=== PATIENT | male | born 1985 | race Caucasian/White ===

== ENCOUNTER 2016-09-12 15:38 | Emergency (ER) | payer MEDICAID ==
[~2016-09-12] VITALS: Ht 177.8 cm; Wt 69.9 kg
[~2016-09-12 15:38] MED LIST: IBUP600 PO; ORPH100T PO
[2016-09-12 16:03] VITALS: BP 106/69; PULSE 80; RESP 16; TEMP 98.2; O2SAT 98
--- NOTE | 2016-09-12 16:07 | PD ---
HPI . dental pain worsening x 1 day Chief Complaint: Oral / Dental Pain or Problem Time Seen by Provider: 16:07 Travel History International Travel<30 days: No Contact w/Intl Traveler<30days: No Traveled to known affect area: No History of Present Illness HPI 31-year-old male with no significant past medical history here for worsening dental pain for 1 day. Patient has had some issues with his teeth for several years. Most recently 2 months ago he was treated with IV and oral antibiotics secondary to his infection. Unfortunately after discharge from the hospital he was unable to follow-up with the dentist. He does have an appointment coming up on the following Tuesday. Today he is here with worsening dental pain for 1 day. He he tells me the pain is 10 out of 10 and radiating into his head ( frontal) and face. He is able to eat, but certain foods cause worsening of the pain. For example today he had a doughnut which she did not tolerate well. Able to drink without any issues. He denies any fever or chills. He denies any chest pain, nausea, vomiting, diaphoresis, abdominal pain or GI complaints. [facility] Past Medical History Diminished Hearing: No Seizures: Yes ( A CHILD LAST SEIZURE IN 1996) Social History Alcohol Use: No Tobacco Use: Yes (07/26 PPD) Substance Use: No Allergies-Medications (Allergen,Severity, Reaction): Coded Allergies: No Known Allergies (Unverified , 09/12/16) Reported Meds & Prescriptions Reported Meds & Active Scripts Active Ibuprofen 800 Mg Tab 800 Mg PO TID Augmentin (Amoxicillin-Clavulanate) 875-125 mg Tab 875 Mg PO BID not for use in CrCl <30 ml/min. Review of Systems General / Constitutional: No: Fever Eyes: No: Visual changes HENT: Positive: Dental Difficulties, No: Headaches Cardiovascular: No: Chest Pain or Discomfort Respiratory: No: Shortness of Breath Gastrointestinal: No: Abdominal Pain Genitourinary: No: Dysuria Musculoskeletal: No: Pain Skin: No Rash Neurologic: No: Weakness Psychiatric: No: Depression Endocrine: No: Polydipsia Hematologic/Lymphatic: No: Easy Bruising Physical Exam Narrative GENERAL: AAO x 3, no acute distress, Well-nourished, well-developed patient. SKIN: Warm and dry. No visible rashes or bruising. HEAD: Normocephalic and atraumatic. EYES: No scleral icterus. No injection or drainage. Pupils equal round reactive to light ENT: No nasal drainage noted. Mucous membranes pink. Airway patent. TMs normal bilaterally. Oral examination shows multiple dental caries. There is gingivitis present, mainly affecting the lower jaw at #19 and 18. There is some submandibular lymphadenopathy. NECK: Supple, trachea midline. No JVD. CARDIOVASCULAR: Regular rate and rhythm without murmurs, gallops, or rubs. RESPIRATORY: Breath sounds equal bilaterally. No accessory muscle use. No rhonchi or rales. GASTROINTESTINAL: Abdomen soft, non-tender, nondistended. EXTREMITIES: No cyanosis or edema. BACK: Nontender without obvious deformity. No CVA tenderness. PSYCH: AAO x 3, normal affect. Data Data Last Documented VS Vital Signs Date Time Temp Pulse Resp B/P Pulse Ox O2 Delivery O2 Flow Rate FiO2 09/12/16 16:03 98.2 80 16 106/69 98 Orders Ketorolac Inj (Toradol Inj) (09/12/16 16:15) [facility] Medical Decision Making Medical Screen Exam Complete: Yes Emergency Medical Condition: Yes Differential Diagnosis Gingivitis, dental caries, oral abscess, less likely facial cellulitis Narrative Course 31-year-old male with no significant past medical history here for worsening dental pain for 1 day. Patient has had some issues with his teeth for several years. Most recently 2 months ago he was treated with IV and oral antibiotics secondary to his infection. Unfortunately after discharge from the hospital he was unable to follow-up with the dentist. He does have an appointment coming up on the following Tuesday. Today he is here with worsening dental pain for 1 day. He he tells me the pain is 10 out of 10 and radiating into his head ( frontal) and face. He is able to eat, but certain foods cause worsening of the pain. For example today he had a doughnut which she did not tolerate well. Able to drink without any issues. He denies any fever or chills. He denies any chest pain, nausea, vomiting, diaphoresis, abdominal pain or GI complaints. Patient seen and examined. afebrile. no signs of systemic infection. He does have gingivitis and multiple dental caries. There are many teeth requiring extractions. There is no definitive abscess collection in his mouth. He does not have any facial edema. Toradol given in the emergency department for pain. Recommend Augmentin and for him to call and have his dental appointment moved to an earlier date. Discussed this with the patient and he was understanding. Patient verbalized understanding of instructions, questions were answered, and thanked me for their care. I advised them if their condition worsens, please return to the nearest emergency room for further care. Diagnosis Primary Impression: Gingivitis Additional Impression: Dental caries Patient Instructions: General Instructions, Gingivitis (ED) Additional Instructions: Please return to emergency department if your symptoms return or worsen. Follow up with your primary care provider. Take medications as prescribed. Please try to move your dentist appointment to an earlier date. As we discussed if you develop any facial swelling or fevers return to the emergency department immediately. Med/Other Pt SpecificInfo: Prescription(s) given Scripts Ibuprofen 800 Mg [id number] Mg PO TID #30 TAB Ref 0 Prov:Patti Cole 09/12/16 Amoxicillin-Clavulanate (Augmentin)875-125 mg [id number] Mg PO BID #20 TAB Ref 0 not for use in CrCl <30 ml/min. Prov:Patti Cole 09/12/16 Disposition: 01 DISCHARGE HOME Condition: Stable Patti Cole Sep 12, 2016 16:07
[2016-09-12] MEDS ORDERED: KETOROLAC TROMETHAMINE 60 MG/2 ML (IM) VIAL IM ONE (16:15)
[2016-09-12] MEDS ORDERED: AUGM875T PO (16:27)
[2016-09-12] MEDS ORDERED: IBUP800T23 PO (16:27)
== END 2016-09-12 16:49 | disposition home or self-care (01) ==
LOC: PHEFT 15:38
DX: K05.10 Chronic gingivitis, plaque induced (principal); K02.9 Dental caries, unspecified; F17.200 Nicotine dependence, unspecified, uncomplicated
CPT/HCPCS: 96372; 99282; J1885

== ENCOUNTER 2016-09-23 11:10 | Emergency (ER) | payer MEDICAID ==
[~2016-09-23] VITALS: Ht 177.8 cm; Wt 73.2 kg
[~2016-09-23 11:10] MED LIST changes: +AUGM875T PO; -IBUP600 PO; +IBUP800T23 PO; -ORPH100T PO
[2016-09-23 11:14] VITALS: BP 110/76; PULSE 78; RESP 16; TEMP 97.6; O2SAT 99
--- NOTE | 2016-09-23 11:34 | PD ---
HPI Chief Complaint: Oral / Dental Pain or Problem Time Seen by Provider: 11:34 Travel History International Travel<30 days: No Contact w/Intl Traveler<30days: No Traveled to known affect area: No History of Present Illness HPI 31-year-old male presents to the ED for evaluation of 2 week history of dental pain. Patient endorses 6/10 left lower posterior dental pain. Pain radiates into the ear. Patient denies fever, chills, difficulty opening and closing the mouth, difficulty swallowing secretions. He was seen in this ED for the same 10 days ago. At that time he received prescriptions for Augmentin and ibuprofen. He states that he has been taking the Augmentin as prescribed. However he states he has "many" pills left. Several times he also states that he is "drinking" the ibuprofen that was provided, despite this being in pill form. States that he saw a dentist yesterday who will not remove the tooth without resolution of the infection. Follow up appointment with the dentist on . PFSH Past Medical History Medical History: Denies Significant Hx Diminished Hearing: No Seizures: Yes ( A CHILD LAST SEIZURE IN 1996) Influenza Vaccination: No ?: Not Past Surgical History Surgical History: No Previous Surgery Social History Alcohol Use: No Tobacco Use: Yes (07/26 PPD) Substance Use: No Allergies-Medications (Allergen,Severity, Reaction): Coded Allergies: No Known Allergies (Unverified , 09/23/16) Reported Meds & Prescriptions Reported Meds & Active Scripts Active Lidocaine Viscous Liq 2 % Liqd 5 Ml SWISH-SWAL DIRECTED PRN Clindamycin (Clindamycin HCl) 300 Mg Cap 600 Mg PO Q8H 7 Days Ibuprofen 800 Mg Tab 800 Mg PO TID Review of Systems Except as stated in HPI: all other systems reviewed are Neg Physical Exam Narrative GENERAL: Well-nourished, well-developed male in no acute distress SKIN: Warm and dry. HEAD: Normocephalic. Atraumatic. EYES: No scleral icterus. No injection or drainage. PERRLA. EOMI. ENT: Pearly govea tympanic membranes bilaterally. Nasal mucosa is moist. Oropharynx without erythema, edema or exudate. Uvula midline. Airway patent. DENTAL: No malocclusion. Tooth #19 has a large dental caries with the nerve exposed. The surrounding gingiva is mildly erythematous and tender to touch. The floor of the mouth is soft. NECK: Supple, trachea midline. No JVD or lymphadenopathy. CARDIOVASCULAR: Regular rate and rhythm without murmurs, gallops, or rubs. No carotid bruits. 2+ DP and radial pulses bilaterally. RESPIRATORY: Breath sounds clear and equal bilaterally. No accessory muscle use. GASTROINTESTINAL: Abdomen soft, non-tender, nondistended. + Bowel sounds MUSCULOSKELETAL: No cyanosis, or edema. Full, active range of motion. Strength 5/5. Neurovascularly intact. BACK: Nontender without obvious deformity. No CVA tenderness. Data Data Last Documented VS Vital Signs Date Time Temp Pulse Resp B/P Pulse Ox O2 Delivery O2 Flow Rate FiO2 09/23/16 11:14 97.6 78 16 110/76 99 MDM Medical Decision Making Medical Screen Exam Complete: Yes Emergency Medical Condition: Yes Differential Diagnosis Dentalgia versus dental caries versus dental abscess versus other Narrative Course 31-year-old male presents to the ED for evaluation of 2 week history of dental pain. Patient endorses 6/10 left lower posterior dental pain. Pain radiates into the ear. Patient denies fever, chills, difficulty opening and closing the mouth, difficulty swallowing secretions. He was seen in this ED for the same 10 days ago. Noncompliant with Augmentin and ibuprofen prescribed at the time. Endorses follow up appointment with the dentist on 10/13. Vitals reviewed. Physical exam reveals tooth 19 has a large dental caries with nerve exposed. The surrounding region generalized mildly erythematous and tender to touch. Floor of mouth is soft. Uvula midline. Airway patent. No lymphadenopathy. Patient was prescribed clindamycin 3 times a day, viscous lidocaine. He is instructed to take all antibiotics as prescribed, even if his symptoms resolve, follow up with the dentist as planned. He indicated understanding of the instructions and was amenable to plan of care. He stable and discharged home. Diagnosis Primary Impression: Dentalgia Referrals: Dentist Patient Instructions: Dental Caries (ED), General Instructions Additional Instructions: Rest, hydrate. Take all antibiotics 3 times a day as prescribed. Viscous lidocaine up to 4 times a day as needed for dental pain. Switch the fluid in the left side of the mouth, hold in the mouth for up to 1 minute before spitting. Follow-up with the dentist as discussed. Return to the ED for any urgent or emergent medical condition. Med/Other Pt SpecificInfo: Prescription(s) given Scripts Lidocaine Viscous Liq 2 % Liqd5 Ml SWISH-SWAL DIRECTED PRN (PAIN) #1 BOTTLE Ref 0 Prov:Layne Vera DO 09/23/16 Clindamycin 300 Mg [id number] Mg PO Q8H 7 Days Ref 0 Prov:Layne Vera DO 09/23/16 Disposition: 01 DISCHARGE HOME Condition: Stable Suzi Thomason Sep 23, 2016 11:34
[2016-09-23] MEDS ORDERED: LIDO1SOL8 SWISH-SWAL (12:18)
[2016-09-23] MEDS ORDERED: CLIN1CAP6 PO (12:18)
== END 2016-09-23 12:41 | disposition home or self-care (01) ==
LOC: PHEFT 11:10
DX: K08.89 Other specified disorders of teeth and supporting structures (principal); F17.210 Nicotine dependence, cigarettes, uncomplicated
CPT/HCPCS: 99282

== ENCOUNTER → 2017-04-25 | Emergency (ER) | payer SELFPAY ==
[~2017-04-25] VITALS: Ht 182.9 cm; Wt 66.0 kg
[~2017-04-25] MED LIST changes: -AUGM875T PO; +CLIN1CAP6 PO; +LIDO1SOL8 SWISH-SWAL
[2017-04-25 13:36] VITALS: BP 100/61; PULSE 87; RESP 16; TEMP 98.4; O2SAT 97
--- NOTE | 2017-04-25 14:14 | PD ---
HPI Chief Complaint: Injury Time Seen by Provider: 13:54 Travel History International Travel<30 days: No Contact w/Intl Traveler<30days: No Traveled to known affect area: No History of Present Illness HPI 31-year-old left-handed male presents to the emergency room for evaluation of left hand pain, numbness, and tingling for the past 2 days. Patient slipped on a rug and flailed his arm backwards to catch himself striking the back of his hand on a metal post. States he had pain over the dorsal third metacarpal. He has been taking ibuprofen with mild relief in symptoms. Patient reports tingling on the entire volar hand especially in the tips of all 5 fingers. It occasionally radiates into the wrist. No chronic medical conditions or daily medications. PFSH Past Medical History Medical History: Denies Significant Hx Diminished Hearing: No Seizures: Yes ( A CHILD LAST SEIZURE IN 1996) Tetanus Vaccination: > 5 Years Influenza Vaccination: No Past Surgical History Surgical History: No Previous Surgery Social History Alcohol Use: No Tobacco Use: Yes (2-3 packs/week) Substance Use: No Allergies-Medications (Allergen,Severity, Reaction): Coded Allergies: No Known Allergies (Unverified , 04/25/17) Reported Meds & Prescriptions Reported Meds & Active Scripts Active No Active Prescriptions or Reported Medications Review of Systems Except as stated in HPI: all other systems reviewed are Neg Physical Exam Narrative GENERAL: Well-nourished, well-developed male in no acute distress. Afebrile. Ambulatory. SKIN: Focused skin assessment warm/dry. No erythema or ecchymosis. HEAD: Normocephalic. EYES: No scleral icterus. No injection or drainage. NECK: Supple, trachea midline. No JVD or lymphadenopathy. CARDIOVASCULAR: Regular rate and rhythm without murmurs, gallops, or rubs. RESPIRATORY: Breath sounds equal bilaterally. No accessory muscle use. MUSCULOSKELETAL: No cyanosis. No edema noted. Full range motion of the left hand and wrist. Radial, ulnar, and median nerves intact. Less than 2 second capillary refill distally. 2+ radial pulse. 2 point discrimination intact distally. Data Data Last Documented VS Vital Signs Date Time Temp Pulse Resp B/P (MAP) Pulse Ox O2 Delivery O2 Flow Rate FiO2 04/25/17 13:36 98.4 87 16 100/61 (74) 97 Orders Orders Hand, Complete ([id number]) (04/25/17 14:37) Gee Bandage (04/25/17 15:07) MDM Medical Decision Making Medical Screen Exam Complete: Yes Emergency Medical Condition: Yes Medical Record Reviewed: Yes Differential Diagnosis Neuropathy, contusion, fracture, sprain, strain Narrative Course 31-year-old left-handed male presents to the emergency room for evaluation of left hand pain, numbness, and tingling for the past 2 days. Patient slipped and fell slamming the back of his left hand against a metal pole. Since then he has had pain where the injury occurred and it radiates into his wrist. Physical exam is reassuring. There is no edema, ecchymosis, erythema. Mild tenderness to palpation between the third and fourth metacarpals. No snuffbox tenderness. Radial, ulnar, and median nerves intact. 2+ radial pulses with less than 2 second capillary refill distally. Patient can feel me poking him with a needle on the left hand but states it feels slightly decreased as compared to right. X-ray is negative. This is contusion. Patient likely has some internal swelling or contusion of a superficial nerve causing paresthesias. Paresthesias are not in any discernible distribution. It is neurovascularly intact otherwise and there are no emergent indications for referral at this time. Patient was told to follow-up with his primary care physician if symptoms persist for 1 week. Told to return for worsening symptoms. He is requesting a work note. He'll be placed in an Gee wrap and discharged with orthopedic instructions. He understands and agrees to plan. Diagnosis Primary Impression: Contusion of left hand Qualified Codes: S60.222A - Contusion of left hand, initial encounter Additional Impression: Left hand paresthesia Referrals: Primary Care Physician Departure Forms: Tests/Procedures, Work Release Enter return to work date: Apr 27, 2017 Additional Instructions: Rest and drink plenty of fluids. Take ibuprofen with food as directed, as needed for pain. Apply ice to the affected area for 20 minutes at a time, as needed for pain and swelling. Follow-up with a primary care physician. Return to the emergency room for worsening symptoms. Med/Other Pt SpecificInfo: Prescription(s) given Scripts No Active Prescriptions or Reported Meds Disposition: DISCHARGE HOME Condition: Stable Carol Epstein Apr 25, 2017 14:14
--- NOTE | 2017-04-25 14:56 | RADRPT ---
EXAM DATE/TIME: 04/25/2017 14:40 [facility] COMPARISON: No previous studies available for comparison. INDICATIONS : Left hand pain' fall today and hit hand on rail. MEDICAL HISTORY : None. SURGICAL HISTORY : None. ENCOUNTER: Initial ACUITY: 1 day PAIN SCORE: 10/10 LOCATION: Left hand. FINDINGS: Three view examination of the left hand demonstrates no soft tissue swelling, dislocation, or fractur e. The carpal bones appear intact. The interphalangeal and metacarpophalangeal joints are intact. Bony mineralization is normal. CONCLUSION: 1. Negative examination of the hand. Sushant Hedrick MD on April 25, 2017 at 14:53 Board Certified Radiologist. This report was verified electronically.
== END | disposition home or self-care (01) ==
LOC: PHEFT 13:31
DX: S60.222A Contusion of left hand, initial encounter (principal); R20.2 Paresthesia of skin; W01.0XXA Fall on same level from slipping, tripping and stumbling without subsequent striking against object, initial encounter
CPT/HCPCS: 73130; 99283

== ENCOUNTER 2017-06-23 08:38 | Emergency (ER) | payer MEDICAID ==
[~2017-06-23] VITALS: Ht 185.4 cm; Wt 67.0 kg
[2017-06-23 08:44] VITALS: BP 107/70; PULSE 77; RESP 16; TEMP 97.3; O2SAT 98
--- NOTE | 2017-06-23 08:59 | PD ---
HPI . Cold Chief Complaint: Cold / Flu Symptoms Time Seen by Provider: 08:54 Travel History International Travel<30 days: No Contact w/Intl Traveler<30days: No Traveled to known affect area: No History of Present Illness HPI This patient presents complaining with cold symptoms for about 6 days. He describes congestion, right ear pain, cough and phlegm. He states that he is taking NyQuil and TheraFlu but continues to have symptoms. He subsequently presents to us for treatment. [facility] Past Medical History Diminished Hearing: No Seizures: Yes ( A CHILD LAST SEIZURE IN 1996) Social History Alcohol Use: No Tobacco Use: Yes (2-3 packs/week) Substance Use: No Allergies-Medications (Allergen,Severity, Reaction): Coded Allergies: No Known Allergies (Unverified Adverse Reaction, Unknown, 06/23/17) Reported Meds & Prescriptions Reported Meds & Active Scripts Active No Active Prescriptions or Reported Medications Review of Systems Except as stated in HPI: all other systems reviewed are Neg General / Constitutional: No: Fever, Chills Eyes: No: Drainage, Redness HENT: Positive: Congestion, Earache Respiratory: Positive: Cough Physical Exam Narrative GENERAL: Awake and alert and in no acute distress. SKIN: Warm and dry. HEAD: Normocephalic/atraumatic. EYES: Pupils are equal. Extraocular movements are intact. ENT: TMs are shiny govea with good light reflexes bilaterally. Turbinates are mildly swollen. Oropharynx has no erythema, exudate or tonsillar enlargement. NECK: Normal range of motion. No cervical lymphadenopathy. CARDIOVASCULAR: Regular rate and rhythm. Heart sounds are normal. RESPIRATORY: Nonlabored respirations. Lungs are clear with full air movement throughout. MUSCULOSKELETAL: Atraumatic. NEUROLOGICAL: Nonfocal. PSYCHIATRIC: Appropriate mood and affect. Data Data Last Documented VS Vital Signs Date Time Temp Pulse Resp B/P (MAP) Pulse Ox O2 Delivery O2 Flow Rate FiO2 06/23/17 08:44 97.3 77 16 107/70 (82) 98 Orders Orders Ed Discharge Order (06/23/17 08:56) MDM Medical Decision Making Medical Screen Exam Complete: Yes Emergency Medical Condition: Yes Differential Diagnosis Differential diagnosis includes but is not limited to influenza, upper respiratory infection, bronchitis, pneumonia Narrative Course This patient presents with cold symptoms. His exam is unremarkable. Diagnosis Primary Impression: Upper respiratory infection Qualified Codes: J06.9 - Acute upper respiratory infection, unspecified; B97.89 - Other viral agents as the cause of diseases classified elsewhere Patient Instructions: General Instructions, Upper Respiratory Infection (ED) Departure Forms: Tests/Procedures Additional Instructions: I recommend the use of a Neti Pot. You may use a nasal spray such as Afrin for up to 3 days as needed for nasal congestion. You may take an ezjj-ibo-kacnoyc antihistamine such as Zyrtec, Negar or Claritin as needed for runny secretions. You may take pseudoephedrine as needed for congestion. You will need to sign for this at the pharmacy. You may take plain Mucinex, 1200 mg twice a day as needed for thick secretions. You may take a cough syrup such as Delsym as needed for cough. Motrin as needed for fever and body aches. Throat lozenges/sprays as needed for sore throat. Warm salt water gargles for sore throat. Hot tea with lemon and honey also helps soothe a sore throat. Scripts No Active Prescriptions or Reported Meds Disposition: 01 DISCHARGE HOME Condition: Stable Cassie Ball MD Jun 23, 2017 08:59
== END 2017-06-23 09:00 | disposition home or self-care (01) ==
LOC: PHEFT 08:38
DX: J06.9 Acute upper respiratory infection, unspecified (principal); B97.89 Other viral agents as the cause of diseases classified elsewhere; F17.200 Nicotine dependence, unspecified, uncomplicated
CPT/HCPCS: 99282

== ENCOUNTER 2017-06-27 14:57 | Emergency (ER) | payer MEDICAID ==
[~2017-06-27] VITALS: Ht 182.9 cm; Wt 74.0 kg
[2017-06-27 15:09] VITALS: BP 119/70; PULSE 112; RESP 17; TEMP 99.3; O2SAT 99
[2017-06-27] MEDS ORDERED: PROCHLORPERAZINE INJ 10 MG/2 ML VIAL IVP ONE (16:00)
[2017-06-27] MEDS ORDERED: SODIUM CHLORIDE 0.9% FLUSH 10 ML FLUSH IVF PRN (16:00)
[2017-06-27] MEDS ORDERED: diphenhydrAMINE HCL 50 MG/ML VIAL IVP ONE (16:00)
[2017-06-27 16:30] LABS: BICARBONATE 29.8 MEQ/L (21.0-32.0)
--- NOTE | 2017-06-27 16:33 | RADRPT ---
EXAM DATE/TIME: 06/27/2017 16:18 [facility] COMPARISON: No previous studies available for comparison. INDICATIONS : Right sided headache for one week. RADIATION DOSE: 57.74 CTDIvol (mGy) MEDICAL HISTORY : Seizures. SURGICAL HISTORY : None. ENCOUNTER: Initial ACUITY: 1 day PAIN SCALE: 6/10 LOCATION: Right cranial TECHNIQUE: Multiple contiguous axial images were obtained of the head. Using automated exposure control and adj ustment of the mA and/or kV according to patient size, radiation dose was kept as low as reasonably a chievable to obtain optimal diagnostic quality images. DICOM format image data is available electro nically for review and comparison. FINDINGS: CEREBRUM: The ventricles are normal. No evidence of midline shift, mass lesion, hemorrhage or acute infarction. No extra-axial fluid collections are seen. POSTERIOR FOSSA: The cerebellum and brainstem demonstrate no acute finding. The 4th ventricle is midline. The cerebe llopontine angle is unremarkable. EXTRACRANIAL: There is mucoperiosteal thickening in the right maxillary antrum with possible air-fluid level. SKULL: The calvaria is intact. No evidence of skull fracture. CONCLUSION: 1. No acute intracranial abnormality is identified. 2. The right maxillary sinus is only partially visualized but demonstrates mucoperiosteal thickening with possible air-fluid level. This could indicate acute sinus disease in the appropriate clinical se tting. Rik Kenny MD on June 27, 2017 at 16:27 Board Certified Radiologist. This report was verified electronically.
--- NOTE | 2017-06-27 16:34 | PD ---
HPI . Headache Chief Complaint: Facial Pain or Swelling Time Seen by Provider: 15:46 Travel History International Travel<30 days: No Contact w/Intl Traveler<30days: No Traveled to known affect area: No History of Present Illness HPI Presents with a chief complaint of a headache. Onset was 2 weeks ago. He states that it is acutely worse today. He states it is really in his right face. He denies any associated sinus congestion or dental problems. He reports subjective fever and photophobia. He states that his pain is better if his eyes are closed. He has not taken anything for the pain prior to presentation. Pain is rated 10/10. [facility] Past Medical History Diminished Hearing: No Seizures: Yes ( A CHILD LAST SEIZURE IN 1996) Social History Alcohol Use: No Tobacco Use: Yes (2-3 packs/week) Substance Use: No Allergies-Medications (Allergen,Severity, Reaction): Coded Allergies: No Known Allergies (Unverified Adverse Reaction, Unknown, 06/27/17) Reported Meds & Prescriptions Reported Meds & Active Scripts Active No Active Prescriptions or Reported Medications Review of Systems Except as stated in HPI: all other systems reviewed are Neg General / Constitutional: Positive: Fever Eyes: Positive: Photophobia HENT: Positive: Headaches, No: Congestion, Dental Difficulties, Earache Physical Exam Narrative GENERAL: Awake and alert and in no acute distress. SKIN: Warm and dry. HEAD: Normocephalic/atraumatic. EYES: Pupils are equal. Extraocular movements are intact. ENT: No tenderness to percussion of the sinuses. NECK: Normal range of motion. Supple. No cervical lymphadenopathy. CARDIOVASCULAR: Regular rate and rhythm. RESPIRATORY: Nonlabored respirations. MUSCULOSKELETAL: Atraumatic. NEUROLOGICAL: Nonfocal. PSYCHIATRIC: Appropriate mood and affect. Data Data Last Documented VS Vital Signs Date Time Temp Pulse Resp B/P (MAP) Pulse Ox O2 Delivery O2 Flow Rate FiO2 06/27/17 16:38 95 18 117/65 (82) 100 Room Air 06/27/17 15:09 99.3 Orders Orders Complete Blood Count With Diff (06/27/17 15:54) Basic Metabolic Panel (Bmp) (06/27/17 15:54) Ct Brain W/O Iv Contrast(Rout) (06/27/17 15:54) Iv Access Insert/Monitor (06/27/17 15:54) Sodium Chloride 0.9% Flush (Ns Flush) (06/27/17 16:00) Prochlorperazine Inj (Compazine Inj) (06/27/17 16:00) Diphenhydramine Inj (Benadryl Inj) (06/27/17 16:00) Influenzae A/B Antigen (06/27/17 15:54) Labs Laboratory Tests Test 06/27/17 16:10 White Blood Count 12.1 TH/MM3 Red Blood Count 4.75 MIL/MM3 Hemoglobin 14.7 GM/DL Hematocrit 42.5 % Mean Corpuscular Volume 89.4 FL Mean Corpuscular Hemoglobin 31.0 PG Mean Corpuscular Hemoglobin Concent 34.7 % Red Cell Distribution Width 12.1 % Platelet Count 181 TH/MM3 Mean Platelet Volume 9.5 FL Neutrophils (%) (Auto) 84.2 % Lymphocytes (%) (Auto) 8.1 % Monocytes (%) (Auto) 6.6 % Eosinophils (%) (Auto) 0.7 % Basophils (%) (Auto) 0.4 % Neutrophils # (Auto) 10.2 TH/MM3 Lymphocytes # (Auto) 1.0 TH/MM3 Monocytes # (Auto) 0.8 TH/MM3 Eosinophils # (Auto) 0.1 TH/MM3 Basophils # (Auto) 0.0 TH/MM3 CBC Comment DIFF FINAL Differential Comment Blood Urea Nitrogen 10 MG/DL Creatinine 0.90 MG/DL Random Glucose 101 MG/DL Calcium Level 8.9 MG/DL Sodium Level 138 MEQ/L Potassium Level 4.0 MEQ/L Chloride Level 103 MEQ/L Carbon Dioxide Level 29.8 MEQ/L Anion Gap 5 MEQ/L Estimat Glomerular Filtration Rate 99 ML/MIN [facility] Medical Decision Making Medical Screen Exam Complete: Yes Emergency Medical Condition: Yes Differential Diagnosis Differential diagnosis of headache includes but is not limited to migraine, muscle contraction headache, brain tumor, brain bleed Narrative Course Patient presents complaining with a headache for 2 weeks. I will treat his headache with Compazine and Benadryl. I have ordered a flu screen. I have also ordered a CT of his head CBC and BMP. CBC & BMP Diagram 06/27/17 16:10 Calcium Level 8.9 Flu screen is negative. Last Impressions Head CT 06/27/17 [id number] Signed Impressions: Service Date/Time: TuesdayJune 27, 2017 16:18 - CONCLUSION: 1. No acute intracranial abnormality is identified. 2. The right maxillary sinus is only partially visualized but demonstrates mucoperiosteal thickening with possible air-fluid level. This could indicate acute sinus disease in the appropriate clinical setting. 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 You may use a nasal spray such as Afrin for up to 3 days as needed for nasal congestion. Med/Other Pt SpecificInfo: Prescription(s) given Scripts Pseudoephedrine-Guaifenesin (Mucinex D Maximum Strength) 120-1,200 Mg Tab 1 TAB PO BID for congestion, #30 Prov: Cassie Ball MD 06/27/17 Hydrocodone-Acetaminophen ([place]) 5 Mg-325 Mg Tab 1 TAB PO Q4H Y for PAIN, #12 TAB 0 Refills Prov: Cassie Ball MD 06/27/17 Amoxicillin-Clavulanate (Augmentin) 875-125 Mg Tab 1 TAB PO BID for Infection, #20 TAB 0 Refills Prov: Cassie Ball MD 06/27/17 Prednisone (48) 10 mg tab Dose Pack (Prednisone (48) 10 mg tab Dose Pack) 10 Mg Dspk 10 MG PO DIRECTED for Inflammation, #1 DSPK 0 Refills Prov: Cassie Ball MD 06/27/17 Disposition: 01 DISCHARGE HOME Condition: Stable Cassie Ball MD Jun 27, 2017 16:34
[2017-06-27 16:37] LABS: AUTOMATED NEUTROPHIL # 10.2 TH/MM3 (1.8-7.7); BASOPHIL % 0.4 % (0.0-2.0); EOSINOPHIL # 0.1 TH/MM3 (0-0.4); EOSINOPHIL % 0.7 % (0.0-4.0); HEMATOCRIT 42.5 % (39.0-51.0); HEMO FLAGS DIFF FINAL; LYMPH % 8.1 % (9.0-44.0); MEAN CELL VOLUME 89.4 FL (80.0-100.0); MEAN CORPUSCULAR HGB CONC 34.7 % (32.0-36.0); MONO % 6.6 % (0.0-8.0); NEUT % 84.2 % (16.0-70.0); PLATELET COUNT 181 TH/MM3 (150-450); RED BLOOD COUNT 4.75 MIL/MM3 (4.50-5.90); RED CELL DISTRIBUTION WIDTH 12.1 % (11.6-17.2); WHITE BLOOD COUNT 12.1 TH/MM3 (4.0-11.0)
[2017-06-27 16:38] VITALS: BP 117/65; PULSE 95; RESP 18; O2SAT 100
[2017-06-27] MEDS ORDERED: NORC5TAB PO (17:11)
[2017-06-27] MEDS ORDERED: AUGM875T3 PO (17:11)
[2017-06-27] MEDS ORDERED: PRED10PA2 PO (17:11)
[2017-06-27] MEDS ORDERED: MUCI120T PO (17:13)
[2017-06-27 18:21] VITALS: BP 91/52
== END 2017-06-27 18:23 | disposition home or self-care (01) ==
LOC: PHED 14:57
DX: G44.51 Hemicrania continua (principal); J32.0 Chronic maxillary sinusitis; F17.200 Nicotine dependence, unspecified, uncomplicated
CPT/HCPCS: 70450; 80048; 85025; 87804; 96374; 96375; 99285; J0780; J1200